=== PATIENT | male | born 1985 | race Caucasian/White ===

== ENCOUNTER 2022-08-04 09:48 | Emergency (ER) | payer MEDICAID ==
[~2022-08-04] VITALS: Ht 193 cm; Wt 108.0 kg
--- NOTE | 2022-08-04 10:00 | NUR ---
MSE done by ER physician with myself at bedside. Pt states he feels a "tingling" sensation in his right leg that goes into his urethra and anus. Denies any pain or discharge.
[2022-08-04] MEDS ORDERED: AMPH30CA3 PO (10:07)
[2022-08-04] MEDS ORDERED: SERT25TA (10:07)
--- NOTE | 2022-08-04 10:22 | NUR ---
1 large bottle of apple juice & 2 small cups of apple juice with 2 cups of water were given per patient's request.
--- NOTE | 2022-08-04 10:28 | NUR ---
Patient discharged to home by Dr Vanegas in stable condition with brisk steady gait. Written and verbal after care instructions given. Patient verbalized understanding and compliance of instructions. Stressed follow up with primary doctor and urologist or return to ER for worsening s/s.
== END 2022-08-04 10:33 | disposition home or self-care (01) ==
LOC: ER 09:54
DX: F22 Delusional disorders (principal); F31.9 Bipolar disorder, unspecified
CPT/HCPCS: 72170; A4663

== ENCOUNTER 2022-08-04 11:03 | Emergency (ER) | payer MEDICAID ==
[~2022-08-04 11:03] MED LIST: AMPH30CA3 PO; SERT25TA
== END 2022-08-04 11:05 | disposition left against medical advice (07) ==
LOC: ER 11:03
DX: Z53.21 Procedure and treatment not carried out due to patient leaving prior to being seen by health care provider (principal)